=== PATIENT | female | born 1945 | race Caucasian/White ===

== ENCOUNTER 2018-10-10 22:04 | Emergency (ER) | payer SELFPAY, OTHER ==
[2018-10-10] MEDS: LIDOCAINE/MYLANTA 40 ML BTL PO (22:53)
[2018-10-10] MEDS: SOD CHLORIDE 0.9% 500 ML IV (22:53)
[2018-10-10] MEDS: FAMOTIDINE 20 MG INJ IV (22:53)
[2018-10-10 22:56] LABS: ADD MAN DIFF? NO
[2018-10-10 22:57] LABS: ABNORMAL IP MESSAGE 1; BASOPHILS % 0.2 % (0.0-2.0); HEMATOCRIT 42.1 % (37.0-47.0); HEMOGLOBIN 13.5 g/dl (12.0-16.0); LYMPHOCYTES # 0.5 10^3/ul (0.8-2.9); LYMPHOCYTES % 5.3 % (15.0-51.0); MEAN CORPUSCULAR HEMOGLOBIN 27.1 pg (29.0-33.0); MEAN CORPUSCULAR HGB CONC 32.1 g/dl (32.0-37.0); MEAN CORPUSCULAR VOLUME 84.5 fl (82.0-101.0); MEAN PLATELET VOLUME 10.2 fl (7.4-10.4); MONOCYTE # 0.2 10^3/ul (0.3-0.9); MONOCYTES % 1.8 % (0.0-11.0); NEUTROPHIL # 9.3 10^3/ul (1.6-7.5); NEUTROPHILS % 92.2 % (39.0-77.0); PLATELET COUNT 253 10^3/UL (140-415); RED BLOOD COUNT 4.98 10^6/ul (4.20-5.40); RED CELL DISTRIBUTION WIDTH 13.3 % (11.5-14.5)
[2018-10-10 22:57] LABS: WHITE BLOOD COUNT 10.1 10^3/ul (4.8-10.8)
[2018-10-10 23:00] LABS: POSITIVE DIFF @See below
[2018-10-10 23:26] LABS: ALANINE AMINOTRANSFERASE 25 IU/L (13-69); ALBUMIN 4.4 g/dl (3.3-4.9); ALBUMIN/GLOBULIN RATIO 1.46; ALKALINE PHOSPHATASE 88 IU/L (42-121); ANION GAP 11 (5-13); ASPARTATE AMINO TRANSFERASE 26 IU/L (15-46); BILIRUBIN,INDIRECT 0.6 mg/dl (0-1.1); BILIRUBIN,TOTAL 0.6 mg/dl (0.2-1.3); BLOOD UREA NITROGEN 16 mg/dl (7-20); CALCIUM 9.4 mg/dl (8.4-10.2); CARBON DIOXIDE 29 mmol/L (21-31); CHLORIDE 98 mmol/L (97-110); CREATININE 0.64 mg/dl (0.44-1.00); GLUCOSE 163 mg/dl (70-220); LIPASE 88 U/L (23-300); POTASSIUM 4.2 mmol/L (3.5-5.1); SODIUM 138 mmol/L (135-144); TOTAL PROTEIN 7.4 g/dl (6.1-8.1)
[2018-10-10 23:37] LABS: TROPONIN-I < 0.012 ng/ml (0.000-0.120)
[2018-10-11] MEDS ORDERED: ONDANSETRON 4 MG INJ (00:55)
[2018-10-11] MEDS: ONDANSETRON 4 MG INJ IV (00:59)
== END 2018-10-11 03:34 | disposition home or self-care (01) ==
LOC: E/R 10-11 03:34
DX: R10.13 Epigastric pain (principal)
CPT/HCPCS: 36415; 74176; 80053; 83690; 84484; 85025; 93005; 96374; 96375; 99285-25